=== PATIENT | female | born 1980 | race Two or more races ===

== ENCOUNTER 2017-10-18 15:42 | Emergency (ER) | payer MEDICAID ==
[~2017-10-18] VITALS: Ht 149.9 cm; Wt 61.7 kg
[~2017-10-18 15:42] MED LIST: CYCLOBENZAPRINE10 MG ORAL; IBUPROFEN600 MG ORAL; NAPROSYN500 M1 ORAL; NKM
[2017-10-18] MEDS ORDERED: ZOFRAN4 M3 ORAL (18:34)
[2017-10-18] MEDS ORDERED: TYLENOL EXTRA500 MG ORAL (18:34)
[2017-10-18 18:42] VITALS: BP 108/75
[2017-10-18 18:43] VITALS: BP 108/75
--- NOTE | 2017-10-18 20:50 | Emergency Room Report ---
History of Present Illness General Chief Complaint: Multiple Trauma/Fall Source: Patient Present Illness [facility] The patient is a 37-year-old female who denies medical history presenting for right-sided headache, nausea, vomiting which began after falling 3 days ago. She states that she slipped and fell at ground level and struck the right side of her head. She denies loss of consciousness. She states that she felt okay afterwards and then the stated symptoms began the following day. Pain is an 8/ 10 throbbing sensation to the right side of her head. Does not radiate. No known provoking relieving factors. She denies other symptoms including neck pain, numbness or tingling, dizziness, blurred vision, confusion Allergies: Coded Allergies: NO KNOWN ALLERGIES (Unverified Allergy, Unknown, 04/02/15) Patient History Past Medical History: see triage record Pertinent Family History: none Last Menstrual Period: 09/30/17 Now: No Reviewed Nursing Documentation: PMH: Agreed, PSxH: Agreed Nursing Documentation-PMH Past Medical History: No Stated History Review of Systems All Other Systems: negative except mentioned in HPI Physical Exam Vital Signs Date Time Temp Pulse Resp B/P (MAP) Pulse Ox O2 Delivery O2 Flow Rate FiO2 10/18/17 15:55 98.8 76 20 109/72 99 Room Air Sp02 EP Interpretation: reviewed, normal General Appearance: no apparent distress, alert, GCS 15, non-toxic Head: normocephalic, atraumatic, other - TTP over R parietal region Eyes: bilateral eye normal inspection, bilateral eye PERRL ENT: hearing grossly normal, normal pharynx, no angioedema, normal voice Neck: full range of motion, supple/symm/no masses Respiratory: chest non-tender, lungs clear, normal breath sounds, speaking full sentences Genitourinary: normal inspection, no CVA tenderness Musculoskeletal: back normal, gait/station normal, normal range of motion, non- tender Neurologic: alert, oriented x3, responsive, motor strength/tone normal, sensory intact, speech normal Psychiatric: judgement/insight normal, memory normal, mood/affect normal, no suicidal/homicidal ideation Skin: normal color, no rash, warm/dry, well hydrated Medical Decision Making PA Attestation Dr. Joseph is my supervising physician. Patient management was discussed with my supervising physician Diagnostic Impression: Primary Impression: Concussion Qualified Codes: S06.0X0A - Concussion without loss of consciousness, initial encounter ER Course The patient is a 37-year-old female who denies medical history presenting for right-sided headache, nausea, vomiting which began after falling 3 days ago. Differential diagnoses considered but not limited to: Concussion, contusion, intracranial hemorrhage, fracture, among others PE: NAD HEENT exam reveals tenderness to palpation over right parietal region. No crepitus. No depressions. No raccoon eyes or Jeong sign. Neck soft and supple. Nontender The patient is given pain medication and Zofran and feels better. CT scan of head is unremarkable The patient was informed of these results and will be discharged home with prescription for Tylenol and Zofran. ER precautions given CT/MRI/US Diagnostic Results CT/MRI/US Diagnostic Results : Imaging Test Ordered: CT head Impression Unremarkable Last Vital Signs Date Time Temp Pulse Resp B/P (MAP) Pulse Ox O2 Delivery O2 Flow Rate FiO2 10/18/17 18:43 98.7 64 16 108/75 99 Room Air Status: improved Disposition: HOME, SELF-CARE Condition: Improved Scripts Acetaminophen* (TYLENOL EXTRA STRENGTH*) 500 Mg Tablet 500 MG ORAL Q8H Y for Prn Headache/Temp > 101, #30 TAB 0 Refills Prov: AMANDA LYNN 10/18/17 Ondansetron* (ZOFRAN*) 4 Mg Tablet 4 MG ORAL Q6H Y for Nausea & Vomiting, #15 TAB Prov: AMANDA LYNN 10/18/17 Patient Instructions: Concussion, Adult Additional Instructions: I discussed my findings with the patient. All questions and concerns have been answered. Treatment and medication compliance have been addressed. I advised the patient that they need to follow up with PMD in 3-5 days. Return to ED if symptoms worsen, new symptoms arise, or if needed for any reason. Patient verbalized understanding of discharge instructions. AMANDA LYNN Oct 18, 2017 20:50
--- NOTE | 2017-10-19 21:47 | Diagnostic Imaging Report ---
Indication: Headache Technique: Contiguous 5 mm thick transaxial imaging of the head obtained in a Siemens Sensation [address] scanner. Soft tissue and bone windows generated. Automatic Exposure Control was utilized. Total Dose length Product (DLP): 1495.[address] Dose Index Volume (CTDIvol): 70.38 mGy Comparison: none Findings: The size and configuration of the cortical sulci, basal cisterns, and ventricles are within normal limits for age. There is no mass effect, midline shift, or edema identified. There is no evidence of acute hemorrhage or abnormal intra-axial or extra-axial fluid collections. The bones and soft tissues are unremarkable. Impression: No mass effect, edema or acute bleed. [facility] has communicated the preliminary results to the Emergency Department. Their findings are largely concordant with this report. The CT scanner at [facility] is accredited by the [employer] and the scans are performed using dose optimization techniques as appropriate to a performed exam including Automatic Exposure control.
== END 2017-10-18 18:45 | disposition home or self-care (01) ==
LOC: EMR 16:17
DX: R51 Headache (principal); R11.2 Nausea with vomiting, unspecified; W01.0XXA Fall on same level from slipping, tripping and stumbling without subsequent striking against object, initial encounter; Y92.89 Other specified places as the place of occurrence of the external cause
CPT/HCPCS: 70450; 99284

== ENCOUNTER 2018-10-12 18:57 | Emergency (ER) | payer MEDICAID ==
[~2018-10-12] VITALS: Ht 154.9 cm; Wt 60.3 kg
[~2018-10-12 18:57] MED LIST changes: +TYLENOL EXTRA500 MG ORAL; +ZOFRAN4 M3 ORAL
[2018-10-12 19:08] VITALS: BP 109/78
--- NOTE | 2018-10-12 19:19 | Emergency Room Report ---
History of Present Illness General Chief Complaint: Nausea Source: Patient Present Illness [facility] This is a 38-year-old female with no significant past medical history. She presents with chief complaint of epigastric pain with nausea and vomiting. Onset this morning. She had nausea with was initially clear and later on became bilious. With epigastric pain. She has watery diarrhea. No sick contact. No fever or chills. Pain is crampy of out of 10. Nothing made it better. Nothing made it worse. Denies any other complaint. Allergies: Coded Allergies: NO KNOWN ALLERGIES (Unverified Allergy, Unknown, 04/02/15) Patient History Past Medical History: none, see triage record, old chart reviewed Past Surgical History: none Pertinent Family History: none Social History: Denies: smoking Now: No Immunizations: other Reviewed Nursing Documentation: PMH: Agreed; PSxH: Agreed Nursing Documentation-PMH Past Medical History: No Stated History Review of Systems Eye: Denies: eye pain, blurred vision ENT: Denies: ear pain, nose congestion, throat swelling Respiratory: Denies: cough, shortness of breath Cardiovascular: Denies: chest pain, palpitations Gastrointestinal: Reports: abdominal pain, diarrhea, nausea, vomiting Musculoskeletal: Denies: back pain, joint pain Skin: Denies: rash Neurological: Denies: headache, numbness Endocrine: Denies: increased thirst, increased urine Hematologic/Lymphatic: Denies: easy bruising All Other Systems: negative except mentioned in HPI Physical Exam Vital Signs Date Time Temp Pulse Resp B/P (MAP) Pulse Ox O2 Delivery O2 Flow Rate FiO2 10/12/18 19:03 98.1 73 18 109/78 98 Room Air vitals normal Sp02 EP Interpretation: reviewed, normal General Appearance: well appearing, no apparent distress, alert Head: normocephalic, atraumatic Eyes: bilateral eye PERRL, bilateral eye EOMI ENT: hearing grossly normal, normal pharynx Neck: full range of motion, supple, no meningismus Respiratory: chest non-tender, lungs clear, normal breath sounds Cardiovascular #1: regular rate, rhythm, no murmur Gastrointestinal: normal bowel sounds, non tender, no mass, no organomegaly, no bruit, non-distended Musculoskeletal: back normal, gait/station normal, normal range of motion Psychiatric: mood/affect normal Skin: warm/dry Medical Decision Making Diagnostic Impression: Primary Impression: Nausea, vomiting and diarrhea Additional Impression: Abdominal pain Qualified Codes: R10.13 - Epigastric pain ER Course Patient with nausea vomiting and diarrhea. Most likely an acute gastroenteritis. She is feeling better now. Epigastric spine probably secondary to gastritis. We'll discharge home. No evidence of an acute abdomen. Last Vital Signs Date Time Temp Pulse Resp B/P (MAP) Pulse Ox O2 Delivery O2 Flow Rate FiO2 10/12/18 19:03 98.1 73 18 109/78 98 Room Air Status: improved Disposition: HOME, SELF-CARE Condition: Stable Scripts Ondansetron (Zofran) 4 Mg Tablet 4 MG ORAL Q6H PRN for Nausea & Vomiting, #10 TAB 0 Refills Prov: Nicanor Ward MD 10/12/18 Patient Instructions: Nausea and Vomiting, Adult Additional Instructions: Increase fluids as tolerated. Follow-up your doctor in 7 days. Return if worse. Nicanor Ward MD Oct 12, 2018 19:19
[2018-10-12 19:50] LABS: EOSINOPHILS % (AUTO) 0.6 % (0.0-3.0); HEMATOCRIT 37.1 % (37.0-47.0); HEMOGLOBIN 12.7 G/DL (12.0-16.0); LYMPHOCYTES % (AUTO) 8.5 % (20.0-45.0); MEAN CORPUSCULAR VOLUME 92 FL (80-99); MONOCYTES % (AUTO) 5.6 % (1.0-10.0); NEUTROPHILS % (AUTO) 84.4 % (45.0-75.0); PLATELET COUNT 226 K/UL (150-450); RED BLOOD COUNT 4.06 M/UL (4.20-5.40); RED CELL DISTRIBUTION WIDTH 11.3 % (11.6-14.8); WHITE BLOOD COUNT 7.4 K/UL (4.8-10.8)
[2018-10-12 20:03] LABS: ANION GAP 8 mmol/L (5-15); BLOOD UREA NITROGEN 10 mg/dL (7-18); CALCIUM 7.8 MG/DL (8.5-10.1); CARBON DIOXIDE 26 MMOL/L (21-32); CHLORIDE 104 MMOL/L (98-107); CREATININE 0.6 MG/DL (0.55-1.30); POTASSIUM 3.3 MMOL/L (3.5-5.1); SODIUM 138 MMOL/L (136-145)
[2018-10-12 20:23] VITALS: BP 122/76
[2018-10-12] MEDS ORDERED: ZOFRAN4 MG ORAL (20:24)
[2018-10-12 20:29] VITALS: BP 122/76
== END 2018-10-12 20:40 | disposition home or self-care (01) ==
LOC: EMR 19:36
DX: R11.2 Nausea with vomiting, unspecified (principal); R19.7 Diarrhea, unspecified; R10.13 Epigastric pain
CPT/HCPCS: 36415; 80048; 85025; 96361; 96374; 99284; J2405

== ENCOUNTER 2019-01-22 17:16 | Emergency (ER) | payer MEDICAID ==
[~2019-01-22] VITALS: Ht 149.9 cm; Wt 61.2 kg
[~2019-01-22 17:16] MED LIST changes: +ZOFRAN4 MG ORAL
[2019-01-22] MEDS ORDERED: NKM (17:22)
[2019-01-22] MEDS ORDERED: Lidocaine 2% Visc 15ml soln ORAL ONE (17:45)
--- NOTE | 2019-01-22 17:48 | Emergency Room Report ---
History of Present Illness General Chief Complaint: Sore Throat Source: Patient (Len Reynaga) Present Illness HPI 38-year-old female patient presents the ER complaining of sore throat for the past 3 weeks. Reports cough with sputum during this time. Denies chest pain or shortness of breath. Denies recent travel outside the country. Denies calf pain. Denies nausea or vomiting. Denies fever. Denies taking any medications for relief of symptoms. Denies history of heart disease. Denies recent travel or periods of immobilization. Denies smoking. Reports cough is listed headache , reports headache all over. Denies neck pain. Denies other aggravating or relieving factors. (Len Reynaga) Allergies: Coded Allergies: NO KNOWN ALLERGIES (Unverified Allergy, Unknown, 04/02/15) Patient History Past Medical History: see triage record Last Menstrual Period: 01/10/19 Reviewed Nursing Documentation: PMH: Agreed; PSxH: Agreed (Len Reynaga) Nursing Documentation-PMH Past Medical History: No Stated History (Len Reynaga) Review of Systems All Other Systems: negative except mentioned in HPI (Len Reynaga) Physical Exam Vital Signs Date Time Temp Pulse Resp B/P (MAP) Pulse Ox O2 Delivery O2 Flow Rate FiO2 01/22/19 17:20 98.1 61 18 119/74 98 Room Air Sp02 EP Interpretation: reviewed, normal General Appearance: well appearing, no apparent distress, alert, GCS 15, non- toxic Head: normocephalic, atraumatic Eyes: bilateral eye normal inspection, bilateral eye PERRL ENT: hearing grossly normal, normal pharynx, no angioedema, normal voice, TMs + canals normal, uvula midline, moist mucus membranes Neck: full range of motion, no meningismus, no bony tend Respiratory: lungs clear, normal breath sounds, no rhonchi, no respiratory distress, no accessory muscle use, no wheezing, speaking full sentences Cardiovascular #1: regular rate, rhythm, no edema Musculoskeletal: back normal, digits/nails normal, gait/station normal, normal range of motion, non-tender Neurologic: alert, oriented x3, responsive, lock stitch channeler III-XII nml as tested, motor strength/tone normal, sensory intact, cerebellar normal, normal gait, speech normal Psychiatric: mood/affect normal Skin: no rash Lymphatic: no adenopathy (Len Reynaga) Medical Decision Making PA Attestation Dr. Pritchard is my supervising Physician whom patient management has been discussed with. (Len Reynaga) Diagnostic Impression: Primary Impression: Atypical pneumonia Additional Impression: Sore throat ER Course Pt presents to ED c/o sore throat, cough and headache. DDX considered but are not limited to pharyngitis, laryngitis, URI, peritonsillar abscess, tonsillitis, pneumonia, bronchitis, migraine, sinus headache, tension headache, cluster headache, meningitis. Patient afebrile, no meningismus, low suspicion for meningitis. Low suspicion for peritonsillar abscess, no neck stiffness, no hot potato voice , no stridor. Negative Homans sign, no recent travel, no tachycardia, no shortness of breath, low suspicion for PE per well's criteria. Does not require imaging at this time. VITAL SIGNS are WNL, patient is afebrile. ER COURSE: Provided with viscous lidocaine in the ER. CXR negative for acute disease per the preliminary reading. However due to duration of symptoms will provide patient with antibiotics to cover for possible atypical pneumonia. Physical exam shows no tonsillar swelling, no exudates, no LAD, hx of cough, no fever, low suspicion for Strep Throat per [facility] criteria. Does not require abx at this time. Patient reports feeling better following administration of medication Salt water gargles Sore throat and headache symptoms likely related to cough, advised patient on taking Tylenol for pain symptoms. ER precautions given. Followup with PCP in 2-3 days. Patient resting comfortably no acute distress, nontoxic-appearing, smiling and laughing, states she will follow-up with her doctor in 2-3 days. DISCHARGE: At this time pt is stable for d/c to home. Patient is resting comfortably, in no acute distress, nontoxic appearing, talking without difficulty. Will provide with patient care instructions and any necessary prescriptions. Patient to take medication as instructed. Care plan and follow-up instructions provided. Patient questions asked and answered. Patient instructed to follow-up with primary care provider in 3 - 5 days. ER precautions given. Patient instructed to return to ER immediately for any new or worsening of symptoms including but not limited to intractable vomiting, difficulty breathing, inability to eat. - Please note that this Emergency Department Report was dictated using [employer] worker technology software, occasionally this can lead to erroneous entry secondary to interpretation by the dictation equipment. (Len Reynaga) Chest X-Ray Diagnostic Results Chest X-Ray Diagnostic Results : Chest X-Ray Ordered: Yes # of Views/Limited/Complete: 1 View Indication: Chest Pain EP Interpretation: Yes PA Xray: Interpretation reviewed, by supervising MD, and agrees with findings. Interpretation: no consolidation, no effusion, no pneumothorax, no acute cardiopulmonary disease Impression: No acute disease PA Scribe Text Elfego Reynaga PA-C (Len Reynaga) Chest X-Ray Diagnostic Results : Electronically Signed by: Jazmin Darling documentation of Xray reviewed by me and is accurate, Deonte Pritchard MD (Deonte Pritchard MD) Last Vital Signs Date Time Temp Pulse Resp B/P (MAP) Pulse Ox O2 Delivery O2 Flow Rate FiO2 01/22/19 17:20 98.1 61 18 119/74 98 Room Air Status: improved (Len Reynaga) Disposition: HOME, SELF-CARE Condition: Stable Scripts Azithromycin* (ZITHROMAX*) 250 Mg Tablet 250 MG ORAL DAILY, #6 TAB 0 Refills Take two tables once daily for 1 day, then one tablet once daily for 4 days. Prov: Len Reynaga 01/22/19 Acetaminophen* (TYLENOL EXTRA STRENGTH*) 500 Mg Tablet 500 MG ORAL Q8H PRN for Prn Headache/Temp > 101, #30 TAB 0 Refills Prov: Len Reynaga 01/22/19 Benzonatate* (TESSALON PERLE*) 100 Mg Capsule 100 MG ORAL THREE TIMES A DAY, #30 PERLE Prov: Len Reynaga 01/22/19 Patient Instructions: Community-Acquired Pneumonia, Adult, [id number], Sore Throat Additional Instructions: Followup with primary care provider in 3 -5 days. Salt water gargles Take Tylenol for pain and fever symptoms Drink plenty of water. Take medications as directed. Patient questions asked and answered. ER precautions given, patient instructed to return to ER immediately for any new or worsening of symptoms including but not limited to intractable vomiting, difficulty breathing, inability to eat. Len Reynaga Jan 22, 2019 17:48 Deonte Pritchard MD Jan 23, 2019 03:27
[2019-01-22 17:51] VITALS: BP 119/74
[2019-01-22] MEDS ORDERED: TYLENOL EXTRA500 MG ORAL (18:33)
[2019-01-22] MEDS ORDERED: TESSALON PERLE100 MG ORAL (18:33)
[2019-01-22] MEDS ORDERED: ZITHROMAX250 MG ORAL (18:33)
[2019-01-22 18:44] VITALS: BP 119/74
--- NOTE | 2019-01-22 18:45 | NUR ---
ED Nurse Note: pt cleared to be d/c per ERMD, pt discharge and aftercare instruction provided w/ prescription, pt education done via discussion and handout, pt advised to follow up with pcp or return to ed if sx worsen or new sx develop, pt verbalized understanding and agrees with plan, vss, ambulatory w/ steady gait, left w/ all belongings. ID band removed
--- NOTE | 2019-01-22 19:42 | Diagnostic Imaging Report ---
EXAM: XR Chest, 1 View CLINICAL HISTORY: COUGH TECHNIQUE: Frontal view of the chest. COMPARISON: No relevant prior studies available. FINDINGS: Lungs: Unremarkable. No consolidation. Pleural space: Unremarkable. No pneumothorax. Heart: Unremarkable. No cardiomegaly. Mediastinum: Unremarkable. Bones/joints: Unremarkable. IMPRESSION: No acute cardiopulmonary disease.
== END 2019-01-22 18:44 | disposition home or self-care (01) ==
LOC: EMR 17:55
DX: J18.9 Pneumonia, unspecified organism (principal); R07.0 Pain in throat
CPT/HCPCS: 71045; 99283

== ENCOUNTER 2019-02-16 06:00 | Emergency (ER) | payer MEDICAID ==
[~2019-02-16] VITALS: Ht 154.9 cm; Wt 54.4 kg
[~2019-02-16 06:00] MED LIST changes: +TESSALON PERLE100 MG ORAL; +ZITHROMAX250 MG ORAL
[2019-02-16 06:20] VITALS: BP 125/56
--- NOTE | 2019-02-16 06:20 | NUR ---
ED Nurse Note: Patient walked in to ER c/o N/V/D, abdominal pain since yesterday evening. AAO x4, VSS at this time, skin is dry, intact, warm to touch. Patient is medicated, connected to the monitor.
--- NOTE | 2019-02-16 06:24 | Emergency Room Report ---
History of Present Illness General Chief Complaint: Nausea, Vomiting, and Diarrhea Source: Patient (Nicanor Ward MD) Present Illness HPI Is a 39-year-old female with no past medical history. She presents with chief complaint of abdominal pain, nausea, vomiting, and diarrhea. Onset last night. [place] pain all her body. No fever or chills. No urinary complaint. Nothing made it better. Eating made it worse. Denies any trauma. Never had this problem before. No sick contact at home. (Nicanor Ward MD) Allergies: Coded Allergies: NO KNOWN ALLERGIES (Unverified Allergy, Unknown, 04/02/15) Patient History Past Medical History: none, see triage record, old chart reviewed Past Surgical History: none Pertinent Family History: none Social History: Denies: smoking Last Menstrual Period: 02/09/19 Now: No Immunizations: other Reviewed Nursing Documentation: PMH: Agreed; PSxH: Agreed (Nicanor Ward MD) Nursing Documentation-PMH Past Medical History: No Stated History (Nicanor Ward MD) Review of Systems Eye: Denies: eye pain, blurred vision ENT: Denies: ear pain, nose congestion, throat swelling Respiratory: Denies: cough, shortness of breath Cardiovascular: Denies: chest pain, palpitations Gastrointestinal: Reports: abdominal pain, diarrhea, nausea, vomiting Musculoskeletal: Denies: back pain, joint pain Skin: Denies: rash Neurological: Denies: headache, numbness Endocrine: Denies: increased thirst, increased urine Hematologic/Lymphatic: Denies: easy bruising All Other Systems: negative except mentioned in HPI (Nicanor Ward MD) Physical Exam Vital Signs Date Time Temp Pulse Resp B/P (MAP) Pulse Ox O2 Delivery O2 Flow Rate FiO2 02/16/19 06:03 90 18 95 Room Air vitals unremarkable Sp02 EP Interpretation: reviewed, normal General Appearance: well appearing, no apparent distress, alert Head: normocephalic, atraumatic Eyes: bilateral eye PERRL, bilateral eye EOMI ENT: hearing grossly normal, normal pharynx Neck: full range of motion, supple, no meningismus Respiratory: chest non-tender, lungs clear, normal breath sounds Cardiovascular #1: regular rate, rhythm, no murmur Gastrointestinal: non tender, no mass, no organomegaly, no bruit, non-distended , decreased bowel sounds Musculoskeletal: back normal, gait/station normal, normal range of motion Psychiatric: mood/affect normal Skin: warm/dry (Nicanro Ward MD) Medical Decision Making Diagnostic Impression: Primary Impression: Nausea, vomiting, and diarrhea Additional Impression: Abdominal pain Qualified Codes: R10.84 - Generalized abdominal pain ER Course Patient presents with abdominal pain with nausea vomiting and diarrhea. Most likely a viral gastroenteritis. Labs, IV fluid and antibiotics ordered. We'll send this patient out to Dr. Kelly for final disposition. (Nicanor Ward MD) ER Course Hospital Course 39-year-old F presents to ED with cramping abdominal pain with vomiting, diarrhea Patient initially seen and evaluated by Dr. Ward; please see his note for full history and physical Clinical course Labs - noted leukocytosis, electrolytes ok, LFTs normal Upon reassessment, patient states pain has improved. findings consistent with gastroenteritis Discussed findings with patient. Discharged to home with prescriptions. States she does not have a PMD. We'll provide referrals I feel this is a highly complex case requiring extensive working including EKG/ Rhythm strip, Xray/CT/US, Blood/urine lab work, repeat exams while in ED, and administration of strong opiates/narcotics for pain control, admission to hospital or close patient follow up. Diagnosis - nausea, vomiting and diarrhea, abdominal pain Stable and discharged to home with prescriptions for Zantac. zofran, bentyl. Followup with PMD. Return to ED if symptoms recur or worsen Labs Test 02/16/19 06:15 White Blood Count 13.2 K/UL (4.8-10.8) Red Blood Count 4.73 M/UL (4.20-5.40) Hemoglobin 14.5 G/DL (12.0-16.0) Hematocrit 41.5 % (37.0-47.0) Mean Corpuscular Volume 88 FL (80-99) Mean Corpuscular Hemoglobin 30.7 PG (27.0-31.0) Mean Corpuscular Hemoglobin Concent 35.0 G/DL (32.0-36.0) Red Cell Distribution Width 11.0 % (11.6-14.8) Platelet Count 240 K/UL (150-450) Mean Platelet Volume 7.1 FL (6.5-10.1) Neutrophils (%) (Auto) % (45.0-75.0) Lymphocytes (%) (Auto) % (20.0-45.0) Monocytes (%) (Auto) % (1.0-10.0) Eosinophils (%) (Auto) % (0.0-3.0) Basophils (%) (Auto) % (0.0-2.0) Urine Color Yellow Urine Appearance Clear Urine pH 8 (4.5-8.0) Urine Specific [place] 1.010 (1.005-1.035) Urine Protein Negative (NEGATIVE) Urine Glucose (UA) Negative (NEGATIVE) Urine Ketones Negative (NEGATIVE) Urine Blood Negative (NEGATIVE) Urine Nitrite Negative (NEGATIVE) Urine Bilirubin Negative (NEGATIVE) Urine Urobilinogen Normal MG/DL (0.0-1.0) Urine Leukocyte Esterase 1+ (NEGATIVE) Urine RBC 0 /HPF (0 - 2) Urine WBC 0-2 /HPF (0 - 2) Urine Squamous Epithelial Cells Moderate /LPF (NONE/OCC) Urine Bacteria Few /HPF (NONE) Urine HCG, Qualitative Negative (NEGATIVE) Sodium Level 129 MMOL/L (136-145) Potassium Level 3.7 MMOL/L (3.5-5.1) Chloride Level 98 MMOL/L (98-107) Carbon Dioxide Level 26 MMOL/L (21-32) Anion Gap 5 mmol/L (5-15) Blood Urea Nitrogen 13 mg/dL (7-18) Creatinine 0.6 MG/DL (0.55-1.30) Estimat Glomerular Filtration Rate > 60 mL/min (>60) Glucose Level 115 MG/DL (74-106) Calcium Level 8.5 MG/DL (8.5-10.1) Total Bilirubin 0.5 MG/DL (0.2-1.0) Aspartate Amino Transf (AST/SGOT) 17 U/L (15-37) Alanine Aminotransferase (ALT/SGPT) 23 U/L (12-78) Alkaline Phosphatase 78 U/L (46-116) Total Protein 8.0 G/DL (6.4-8.2) Albumin 4.2 G/DL (3.4-5.0) Globulin 3.8 g/dL Albumin/Globulin Ratio 1.1 (1.0-2.7) Lipase 155 U/L (73-393) (Robert Kelly MD) Last Vital Signs Date Time Temp Pulse Resp B/P (MAP) Pulse Ox O2 Delivery O2 Flow Rate FiO2 02/16/19 06:03 90 18 95 Room Air Status: improved (Nicanor Ward MD) Status: improved (Robert Kelly MD) Disposition: HOME, SELF-CARE Condition: Stable Scripts Dicyclomine Hcl* (DICYCLOMINE HCL*) 10 Mg Capsule 10 MG PO QID for 5 Days, CAP Prov: Robert Kelly MD 02/16/19 Ranitidine Hcl* (ZANTAC*) 150 Mg Tablet 150 MG ORAL TWICE A DAY, #30 TAB Prov: Robert Kelly MD 02/16/19 Ondansetron Odt* (ZOFRAN ODT*) 4 Mg Tab.rapdis 4 MG BC EVERY 6 HOURS PRN for Nausea & Vomiting, #20 TAB 0 Refills Prov: Robert Kelly MD 02/16/19 Nicanor Ward MD February 16, 2019 06:23 Robert Kelly MD February 16, 2019 07:44
[2019-02-16] MEDS ORDERED: Ketorolac 30mg Inj ONE (06:29)
[2019-02-16] MEDS ORDERED: Ketorolac 30mg Inj IV ONE (06:30)
[2019-02-16 06:39] LABS: APPEARANCE,URINE CLEAR; BILIRUBIN, URINE NEGATIVE (NEGATIVE); GLUCOSE, URINE (UA) NEGATIVE (NEGATIVE); KETONES,URINE NEGATIVE (NEGATIVE); LEUKOCYTE ESTERASE ,URINE 1+ (NEGATIVE); NITRITE,URINE NEGATIVE (NEGATIVE); PH,URINE 8 (4.5-8.0); PROTEIN,URINE NEGATIVE (NEGATIVE); UROBILINOGEN,URINE NORMAL MG/DL (0.0-1.0)
[2019-02-16 06:43] LABS: COLOR,URINE YELLOW
[2019-02-16 06:46] LABS: ANION GAP 5 mmol/L (5-15); BLOOD UREA NITROGEN 13 mg/dL (7-18); CALCIUM 8.5 MG/DL (8.5-10.1); CARBON DIOXIDE 26 MMOL/L (21-32); CHLORIDE 98 MMOL/L (98-107); CREATININE 0.6 MG/DL (0.55-1.30); POTASSIUM 3.7 MMOL/L (3.5-5.1); SODIUM 129 MMOL/L (136-145)
[2019-02-16 06:50] LABS: ALANINE AMINOTRANSFERASE 23 U/L (12-78); ALBUMIN 4.2 G/DL (3.4-5.0); ALBUMIN/GLOBULIN RATIO 1.1 (1.0-2.7); ALKALINE PHOSPHATASE 78 U/L (46-116); ASPARTATE AMINO TRANSFERASE 17 U/L (15-37); BILIRUBIN,TOTAL 0.5 MG/DL (0.2-1.0)
[2019-02-16 06:58] LABS: HEMATOCRIT 41.5 % (37.0-47.0); HEMOGLOBIN 14.5 G/DL (12.0-16.0); MEAN CORPUSCULAR VOLUME 88 FL (80-99); PLATELET COUNT 240 K/UL (150-450); RED BLOOD COUNT 4.73 M/UL (4.20-5.40); WHITE BLOOD COUNT 13.2 K/UL (4.8-10.8)
--- NOTE | 2019-02-16 07:11 | NUR ---
ED Nurse Note: resumed care pt awake alert on monitor vss ivf done pt denies any pain ermd at bedside.
[2019-02-16 07:13] VITALS: BP 107/64
[2019-02-16] MEDS ORDERED: RANITIDINE HCL150 MG ORAL (07:14)
[2019-02-16] MEDS ORDERED: DICYCLOMINE HCL10 MG PO (07:14)
[2019-02-16] MEDS ORDERED: ONDANSETRON ODT4 MG BC (07:14)
[2019-02-16 07:23] VITALS: BP 107/64
== END 2019-02-16 07:24 | disposition home or self-care (01) ==
LOC: EMR 06:27
DX: R11.2 Nausea with vomiting, unspecified (principal); R19.7 Diarrhea, unspecified; R10.84 Generalized abdominal pain; D72.829 Elevated white blood cell count, unspecified
CPT/HCPCS: 36415; 80053; 81003; 81025; 83690; 85007; 85025; 96361; 96374; 96375; 99284; J1885; J2405